=== PATIENT | male | born 1960 | race Caucasian/White ===

== ENCOUNTER 2024-06-14 13:35 | Outpatient (AMB) | payer OTHER, SELFPAY ==
--- NOTE | 2024-06-14 13:37 | A.OFFVIS_ITS ---
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 ILR Intake Note: New patient hx embolic stroke ? ILR feeling good Treasury Manager Required: No Allergies doxycycline Allergy (Mild, Verified 06/14/24 13:48) Rash Medication List - Last Reconciled 06/14/24 by Samuel Almanza MD aspirin (Adult Aspirin Regimen) 81 mg PO DAILY atorvastatin 20 mg PO DAILY clopidogrel 75 mg PO DAILY lisinopril 2.5 mg PO DAILY HPI Comments Details: Thank you for referring Bebo in cardiology consultation today for workup for CVA. Seen by Dr. 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 Patient was prior history of DVT/PE and was treated with blood thinners for very short period of time as per him. Does not recall having thrombophilic workup. This was few years ago. Since then he has had no events on aspirin therapy. He then had in summer this past year sudden-onset neurologic symptoms with memory loss and word-finding difficulty and subsequently was diagnose with a CVA. Had workup done with a 3 day Holter monitor as well as an echocardiogram. He did not undergo JOSE and does not recall undergoing a thrombophilic workup. He was referred here for further evaluation management. He is currently on dual antiplatelet therapy along with statin low-dose lisinopril therapy. Patient has no symptoms of prolonged palpitation irregular heartbeat. He said his speech difficulties have improved. He was no focal motor or sensory deficits. [facility] Medical History Pulmonary embolism CVA (cerebral vascular accident) Family History Father Alzheimer dementia Cancer Mother Rheumatic heart disease Social History Patient Tobacco Use Status: Never used Tobacco Review of Systems Const Denies chills, Denies daytime sleepiness, Denies fatigue, Denies fever(s), Denies frequent falls, Denies poor appetite, Denies snoring, Denies stops breathing during sleep, Denies weakness, Denies weight gain and Denies weight loss Eyes Denies loss of vision ENT Denies dizziness and Denies hearing loss Card Denies chest pain, Denies claudication, Denies leg edema, Denies lightheadedness, Denies palpitations, Denies dyspnea, Denies dyspnea on exertion and Denies orthopnea Resp Denies cough, Denies excessive phlegm production, Denies dyspnea, Denies dyspnea on exertion, Denies snoring and Denies wheezing GI Denies abdominal pain, Denies hematochezia, Denies change in bowel habits, Denies nausea and Denies vomiting Denies dysuria and Denies urinary frequency Musc Denies arthralgias, Denies muscle weakness, Denies numbness and Denies other (frequent falls) Skin/Breast Denies nail changes and Denies rash Neuro Denies Abnormal speech present, Denies dizziness, Denies frequent falls, Denies loss of vision, Denies memory loss, Denies numbness and Denies weakness Psych Denies depression and Denies memory loss Endo Denies fatigue and Denies palpitations Uriel/Lymph Reports easy bruising and Reports other (anemia) Aller/Immun Denies wheezing Physical Exam Vital Signs: Last Vital Signs Pulse 99 06/14/24 13:38 BP 120/74 06/14/24 13:38 BMI result Body Mass Index 30.4 Const General: cooperative, comfortable, no acute distress, alert, awake and well ivanna omed Nutritional Appearance: overweight Orientation/consciousness: patient oriented x3 Limitations: no limitations HEENT Head: Yes normocephalic and Yes atraumatic Neck Neck: Yes trachea midline and Yes supple Resp Effort & Inspection: normal respiratory effort Auscultation: clear to auscultation bilaterally Cardio Jugular venous distension: no JVD Palpation: normal PMI Rate: regular rate Rhythm: regular rhythm Heart sounds: S1 normal heart sound present, S2 normal heart sound present, no click, no gallops, no murmurs and no rubs GI Auscultation: normal bowel sounds Skin General skin exam: no rashes or lesions noted Neuro General: patient oriented x3 and no focal motor deficits Speech: No Abnormal speech present Extrem General: Yes no clubbing, cyanosis or edema Psych Appearance: grossly normal Office Procedures EKG Details: EKG shows normal sinus rhythm with isolated Q-waves in lead 3 and AVF which could represent pseudo infarct pattern from body habitus. [id number], Complete Assessment & Plan Assessment & Plan (1) CVA (cerebral vascular accident): Code(s): I63.9 - Cerebral infarction, unspecified Category: Medical Plan: CVA which appears to be embolic in nature as per Neurology. Atrial fibrillation suddenly possible. Will place implantable loop recorder to further assess for any presence of atrial fibrillation. This was discussed with him. Discussed the risks, benefits, alternatives to the procedure. Also will perform a JOSE to evaluate for PFO and other cardiac etiology for stroke. Discussed with him about risks, benefits, alternatives of the procedures. Understands agrees. Given his prior history of venous thromboembolic disease as well as now new embolic looking CVA question arterial thrombosis. Thrombophilic workup should be pursued. Will refer him to Hematology for the same. For now continue in intense vascular risk factor modification in absence of obvious source of stroke target goal LDL less than 70 mg/dL. Will follow with him. Orders: Orders CA echo transesophageal w con Today I63.9 - Cerebral infarction, unspecified Referrals Hematology & Oncology Referral I63.9 - Cerebral infarction, unspecified Coding Level of Care Code New Pt Level 4 (37320) Complex EM visit Add On G2211 Diagnoses CVA (cerebral vascular accident) I63.9 CPT Codes EKG - CPT: 82349-[id number], Complete ([id number])
[2024-06-14 13:38] VITALS: BP 120/74; PULSE 99; BMI 30.4
--- OUTSIDE RECORDS SUMMARY | 2024-06-14 13:39 | XMS_ITS | Continuity of Care Document ---
Author Organization [facility] Address [address] [place] [address]- Care Team Providers Care Cross Tie Maker Name Role Phone Not on Staff, PCP Primary Care Physician Unavail able Encounter [facility] Date(s): 04/28/24 - 05/28/24 [facility] [address] [place] [address]- Encounter Type: Triage Patient Care team information Care Team Personnel Name: Not on Staff, PCP Position: [facility] Physician (General Medicine) Member Role: PCP Insurance Providers Guarantor name: NA Health Plan Information #: 1 Payer: SELF PAY INSURANCE Member Number: NA Policy Number: NA Group Number: NA
== END 2024-06-14 14:27 | disposition home or self-care (01) ==
PROVIDERS: Visit Provider Internal Medicine Cardiovascular Disease
DX: I63.9 Cerebral infarction, unspecified (principal)
CPT/HCPCS: 93010; 99204; G2211

== ENCOUNTER → 2024-06-14 13:35 | Outpatient (BNVA) | payer OTHER, SELFPAY | PROVIDERS: Visit Provider Internal Medicine Cardiovascular Disease | DX: Z86.73 Personal history of transient ischemic attack (TIA), and cerebral infarction without residual deficits (principal); Z86.711 Personal history of pulmonary embolism; Z86.718 Personal history of other venous thrombosis and embolism; Z79.899 Other long term (current) drug therapy | CPT/HCPCS: 93005 ==

== ENCOUNTER 2024-06-21 12:41 | Outpatient (REF) | payer OTHER, SELFPAY ==
[2024-06-21 13:12] VITALS: BP 148/81; PULSE 66; RESP 18; TEMP 36.6; O2SAT 99; BMI 29.8
--- OUTSIDE RECORDS SUMMARY | 2024-06-21 15:01 | XMS_ITS | Continuity of Care Document ---
Author Organization [facility] Address [address] [place] [address]- Care Team Providers Care Garment Sewer Hand Name Role Phone Nabila Cabello MD Primary Care Physician Encounter [facility] [id number] Date(s): 06/09/24 - 06/16/24 [facility] [address] [place] [address]- Encounter Diagnosis Ischemic cerebrovascular accident (CVA)(Discharge Diagnosis) - 06/09/24 Tinnitus of both ears(Discharge Diagnosis) - 06/09/24 Memory loss or impairment(Discharge Diagnosis) - 06/09/24 Essential tremor(Discharge Diagnosis) - 06/09/24 Chronic insomnia(Discharge Diagnosis) - 06/09/24 DVT (deep venous thrombosis)(Discharge Diagnosis) - 06/09/24 Dyslipidemia(Discharge Diagnosis) - 06/09/24 PE (pulmonary thromboembolism)(Discharge Diagnosis) - 06/09/24 Attending Physician: Nabila Cabello MD Encounter Type: Office Visit Allergies, Adverse Reactions, Alerts Substance Criticality Severity Reaction Reaction Severity Status doxycycline Skin rash Active Medications aspirin 81 mg oral delayed release tablet 81 mg, 1, tablet, By Mouth, Daily, # 90 tablet, Refills 6, Tot. Refills 6, Maintenance, 06/09/24 11:14:00 AM EST, Route to Pharmacy Electronically, [id number], Partial fill upon patient request if the prescription is for a schedule II opioid drug., 170.5, cm, 06/09/24 10:31:00 EST, Height,89.4, kg, 06/09/24 10:27:00 EST, Dry Weight Start Date: 06/09/24 Status: Ordered Quantity: 90.0 Unit: tablet Repeat number: 7 atorvastatin 20 mg oral tablet 1 tablet = 20 mg, By Mouth, Daily, # 90 tablet, 6 Refills, Maintenance, 06/09/24 11:13:00 AM EST, Tablet, [id number], Partial fill upon patient request if the prescription is for a schedule II opioid drug., 170.5, cm, 06/09/24 10:31:00 EST, Height, 89.4, kg, 06/09/24 10:27:00 EST, Dry Weight Start Date: 06/09/24 Status: Ordered Quantity: 90.0 Unit: tablet Repeat number: 7 lisinopril 2.5 mg oral tablet 2.5 mg, 1, tablet, By Mouth, Daily, # 90 tablet, Refills 6, Tot. Refills 6, Maintenance, 06/09/24 11:14:00 AM EST, Route to Pharmacy Electronically, [id number], Partial fill upon patient request if the prescription is for a schedule II opioid drug., 170.5, cm, 06/09/24 10:31:00 EST, Height, 89.4, kg, 06/09/24 10:27:00 EST, Dry Weight Start Date: 06/09/24 Status: Ordered Quantity: 90.0 Unit: tablet Repeat number: 7 Plavix 75 mg oral tablet 75 mg, 1, tablet, By Mouth, Daily, # 90 tablet, Refills 6, Tot. Refills 6, Maintenance, 06/09/24 11:14:00 AM EST, Route to Pharmacy Electronically, [id number], Partial fill upon patient request if the prescription is for a schedule II opioid drug., 170.5, cm, 06/09/24 10:31:00 EST, Height,89.4, kg, 06/09/24 10:27:00 EST, Dry Weight Start Date: 06/09/24 Status: Ordered Quantity: 90.0 Unit: tablet Repeat number: 7 Problem List Condition Confirmation Course Effective Dates Status H ealth Status Informant Tinnitus of both ears Confirmed Active DVT (deep venous thrombosis) Confirmed Active Dyslipidemia Confirmed Active Essential tremor Confirmed Active Ischemic cerebrovascular accident (CVA) Confirmed Active Obese class I Confirmed Active PE (pulmonary thromboembolism) Confirmed Active Diagnosis Diagnosis Type Effective Dates Health Status Clinical Service Informant Ischemic cerebrovascular accident (CVA) Discharge Diagnosis 06/09/24 DVT (deep venous thrombosis) Discharge Diagnosis 06/09/24 PE (pulmonary thromboembolism) 1 Discharge Diagnosis 06/09/24 Non-Specified Dyslipidemia Discharge Diagnosis 06/09/24 Tinnitus of both ears Discharge Diagnosis 06/09/24 Memory loss or impairment Discharge Diagnosis 06/09/24 Essential tremor Discharge Diagnosis 06/09/24 Chronic insomnia Discharge Diagnosis 06/09/24 04/09/2025 11:33 GABY - Nabila Cabello MD PE and DVT 2018, no recurrence not on anticoag Vital Signs Most recent to oldest [Reference Range]: 1 2 3 Height 170 cm (06/12/24 10:12 AM) 170.5 cm (06/09/24 10:31 AM) 170.5 cm (06/09/24 10:27 AM) Weight 89 kg (06/12/24 10:12 AM) 89.4 kg (06/09/24 10:27 AM) Oxygen Saturation [94-100 %] 97 % (06/09/24 10:27 AM) Pulse Rate [55-90 bpm] 75 bpm (06/09/24 10:27 AM) Body Mass Index [18.5-24.99 kg/m2] 30.75 kg/m2 *>HHI* (06/09/24 10:27 AM) Blood Pressure [90-138/55-84 mm Hg] 129/84mm Hg (06/09/24 10:31 AM) 165/95mm Hg *H* (06/09/24 10:27 AM) Mode of Delivery (Oxygen) Room air (06/09/24 10:27 AM) Blood pressure sites Arm, right (06/09/24 10:31 AM) Arm, right (06/09/24 10:27 AM) Dry Weight 89.4 kg (06/09/24 10:27 AM) Weight Obtained Via Standing scale (06/09/24 10:27 AM) Dry Weight Obtained Via Standing scale (06/09/24 10:27 AM) Social History Social History Type Response Smoking Status Never (less than 100 in lifetime) entered on: 06/09/24 Sex Sex Representation Male (finding) Patient Care team information Care Team Personnel Name: Nabila Cabello MD Position: S Physician - Primary Care Member Role: PCP Address: [address] [place] [address] [facility] [address] Telecom: Care Team Related Persons Name: CADEN DURAN Insurance Providers Guarantor name: JENNIFER Health Plan Information #: 1 Payer: [employer] NON HMO PLANS Member Number: [id number] Policy Number: JENNIFER Group Number: [id number] Health Plan Information #: 2 Payer: SELF PAY INSURANCE Member Number: NA Policy Number: JENNIFER Group Number: NA
--- NOTE | 2024-06-22 08:50 | PM.OP ---
Brief Operative Note Date of Service: 06/21/24 Pre-op diagnosis: CVA Post-op diagnosis: same Procedure: Placement of implantable loop recorder. Implants: After obtaining full informed consent patient was brought to the minor surgery suite. Patient was laid supine on the operating table. Patient is precordial area was then prepped and draped in a sterile fashion. Patient was then given 2% lidocaine with epinephrine intradermally and subcutaneously at the surgical site. A small incision was then made. A [employer] implantable loop recorder was then placed using modified Seldinger technique in his subcutaneous pace. Measured R-wave add 0.15-0.19 mV. The wound was then closed with Steri-Strips. Pressure dressing was then applied. Minimal blood loss up to 5 mL Surgeon: Samuel Almanza MD Anesthesia: local Was an Light Armored Reconnaissance Officer used for this Procedure?: No Estimated blood loss (mL): 5 Condition: stable Disposition: same day
== END 2024-06-21 12:42 | disposition home or self-care (01) ==
LOC: HO.MS 12:41
PROVIDERS: PCP Internal Medicine; Visit Provider Internal Medicine Cardiovascular Disease
PROC: (CPT 33285; principal; 2024-06-21 13:30)
DX: I63.9 Cerebral infarction, unspecified (principal)
CPT/HCPCS: 33285; C1764; J2004

== ENCOUNTER → 2024-06-21 12:41 | Outpatient (BNV) | payer OTHER, SELFPAY | PROVIDERS: PCP Internal Medicine; Visit Provider Internal Medicine Cardiovascular Disease | DX: I63.9 Cerebral infarction, unspecified (principal) | CPT/HCPCS: 33285 ==

== ENCOUNTER → 2024-06-28 08:31 | Outpatient (BNV) | payer OTHER, SELFPAY | PROVIDERS: Visit Provider Internal Medicine Medical Oncology | DX: I69.328 Other speech and language deficits following cerebral infarction (principal); Z86.718 Personal history of other venous thrombosis and embolism; Z79.01 Long term (current) use of anticoagulants | CPT/HCPCS: 99204 ==

== ENCOUNTER → 2024-07-03 08:14 | Outpatient (BNVA) | payer OTHER, SELFPAY | PROVIDERS: PCP Internal Medicine; Visit Provider Internal Medicine Cardiovascular Disease ==

== ENCOUNTER 2024-07-05 12:44 | Day surgery (SDC) | payer OTHER, SELFPAY ==
--- NOTE | 2024-07-03 14:10 | HO.ANESPROP2 ---
Documented by User: Luiza Taylor NP 07/03/24 14:12 HPI - Anesthesia Eval Consult details Narrative: 64yo M for Transesophageal Echocardiogram with bubble study CVA: Plavix/asa PMFSH Active Problems Active Problems: All Active Problems CVA (cerebral vascular accident) (Acute) CVA (cerebral vascular accident) (Acute) Past Medical History Medical History History of cardiac monitoring DVT (deep venous thrombosis) Pulmonary embolism CVA (cerebral vascular accident) Family History Family History Father Alzheimer dementia Cancer Prostate CA Mother Rheumatic heart disease Paternal Grandfather Prostate CA Social History Social History Household Members: Spouse Patient Tobacco Use Status: Never used Tobacco Use of substances other than those prescribed or required for medical reasons: No Are you DNR?: No Advance Directives: No Advance Directives Information Provided: Yes Recently lost weight without trying: No Nutrition Risks: No Nutritional Risk Poor oral hygiene: No service: No Current occupational status: employed Gender identity: Male Meds Allergies Allergy/AdvReac Type Severity Reaction Status Date / Time doxycycline Allergy Mild Rash Verified 06/14/24 13:48 Home Medications ?Medication ?Instructions ?Recorded ?Confirmed ?Last Taken ?Type aspirin 81 mg tablet,delayed 81 mg PO DAILY 06/14/24 07/05/24 07/05/24 History release (Adult Aspirin Regimen) atorvastatin 20 mg tablet 20 mg PO DAILY 06/14/24 07/05/24 07/05/24 History clopidogrel 75 mg tablet 75 mg PO DAILY 06/14/24 07/05/24 07/05/24 History lisinopril 2.5 mg tablet 2.5 mg PO DAILY 06/14/24 07/05/24 07/05/24 History Exam Pertinent Lab Results Pertinent Lab Results: Laboratory Tests 06/28/24 10:03 WBC 6.2 Hgb 15.3 Hct 43.6 Plt Count 250 Sodium 140 Potassium 4.4 Chloride 113 H Carbon Dioxide 25 BUN 15 Creatinine 0.95 Narrative Narrative: EKG 06/2024 Details: EKG shows normal sinus rhythm with isolated Q-waves in lead 3 and AVF which could represent pseudo infarct pattern from body habitus. Assessment and Plan Assessment Anesthesia Assessment: Chart Reviewed Documented by User: Rachell Sun MD 07/05/24 14:30 COUNT INCLUDES THE [facility] Active Problems Active Problems: All Active Problems CVA (cerebral vascular accident) (Acute) CVA (cerebral vascular accident) (Acute) H/o DVT and PE years ago. Was on Plavix for 6 months and then baby ASA Past Medical History Medical History History of cardiac monitoring DVT (deep venous thrombosis) Pulmonary embolism CVA (cerebral vascular accident) Family History Family History Father Alzheimer dementia Cancer Prostate CA Mother Rheumatic heart disease Paternal Grandfather Prostate CA Family history of problems with anesthesia: No Surgical History History of Problems with Anesthesia: No Social History Social History Household Members: Spouse Patient Tobacco Use Status: Never used Tobacco Use of substances other than those prescribed or required for medical reasons: No Are you DNR?: No Advance Directives: No Advance Directives Information Provided: Yes Recently lost weight without trying: No Nutrition Risks: No Nutritional Risk Poor oral hygiene: No service: No Current occupational status: employed Gender identity: Male Meds Allergies Allergy/AdvReac Type Severity Reaction Status Date / Time doxycycline Allergy Mild Rash Verified 06/14/24 13:48 Home Medications ?Medication ?Instructions ?Recorded ?Confirmed ?Last Taken ?Type aspirin 81 mg tablet,delayed 81 mg PO DAILY 06/14/24 07/05/24 07/05/24 History release (Adult Aspirin Regimen) atorvastatin 20 mg tablet 20 mg PO DAILY 06/14/24 07/05/24 07/05/24 History clopidogrel 75 mg tablet 75 mg PO DAILY 06/14/24 07/05/24 07/05/24 History lisinopril 2.5 mg tablet 2.5 mg PO DAILY 0107/05/24 07/05/24 History Exam Height,Weight and Vital Signs: Height 5 ft 7 in Weight 86.296 kg Vital Signs Temp Pulse Resp BP Pulse Ox O2 Del Method 07/05/24 14:11 98.4 F 66 16 136/85 98 Room Air Airway Mallampati Class: III TM Dist: >3cm (Slight recession of lower jaw) Neck ROM: Full Partial: Upper Loose/Missing/Broken Teeth: Yes (Missing wisdom teeth) Heart: RRR Lungs: CTAB Assessment and Plan Assessment Anesthesia Assessment: Anesthesia Plan Discussed and Chart Reviewed Final Anesthetic Review Family History of Problems with Anesthesia: No History of Problems with Anesthesia: No NPO: Yes ASA Class: III Final Preanesthetic Review: No Changes in Pt Med Stat, Meds/Allgs Chart Reviewed, Consent Obtained/Reviewed and Anes Risks/Benef Reviewed Patient Risk: Intermediate Procedure Risk: Low Assessment/Block/Sedation in SS: Assess/Block/Sedation-SS Anesthetic Plan Anesthetic Plan: TIVA Disposition: Standard PACU
[2024-07-05 13:23] VITALS: BMI 29.8
[2024-07-05] MEDS: Lactated Ringers 1,000 ML 100 ML IVCONT (13:52)
--- NOTE | 2024-07-05 14:05 | MHC.SHP ---
Pre-Procedural Eval Section A - 24 Hr Update-Section A only Date of Service: 07/05/24 The patient is an INPATIENT: No Changes since office visit: Yes Patient answered all questions; No Cold of Flu in the past 2 weeks, No New Medical Problems and No Changes in Medication The patient has been examined within 24 hours of the surgical procedure. The History & Physical has been completed within 30 days and I have reviewed it.: Yes Section B - Complete if H&P > 30 days Chief Complaint: Cerebral infarction, unspecified Allergies: Allergies Allergy/AdvReac Type Severity Reaction Status Date / Time doxycycline Allergy Mild Rash Verified 06/14/24 13:48 Plan I have reviewed the history and physical and performed a pertinent physical examination on my patient. No changes have occurred unless specified. Time Spent With Patient Time: Total time managing care of this patient today ____ minutes.
[2024-07-05 14:11] VITALS: BP 136/85; PULSE 66; RESP 16; TEMP 36.9; O2SAT 98
--- OUTSIDE RECORDS SUMMARY | 2024-07-05 14:52 | XMS_ITS | Clinical Summary ---
Author Organization [facility] [address] [facility] Building Address [address] [place], [place] Phone Care Team Providers Care Commercial Litigation Attorney Name Role Phone Lambert Turner MD Primary Care Provider +1 [phone] Allergies Active Allergy Reactions Criticality Noted Date Comments Doxycycline 11/09/2017 Other Reaction(s): Rash/Dermatitis, unknown Medications Medication Sig Dispensed Refills Start Date End Date Status aspirin 81 mg EC tablet Take 1 tablet (81 mg total) by mouth 1 (one) time each day. Active atorvastatin (LIPITOR) 20 mg tablet Take 1 tablet (20 mg total) by mouth 1 (one) time each day. 10/21/2023 Active lisinopriL (PRINIVIL,ZESTRIL) 2.5 mg tablet Take 1 tablet (2.5 mg total) by mouth 1 (one) time each day. Active clopidogreL (PLAVIX) 75 mg tablet Take 1 tablet (75 mg total) by mouth 1 (one) time each day. 90 tablet 1 04/24/2024 Active Active Problems Problem Noted Date Diagnosed Date Elevated PSA 03/09/2024 Expressive aphasia 03/09/2024 History of CVA with residual deficit 03/09/2024 Hypertension 03/09/2024 Bilateral tinnitus 10/21/2023 Hyperlipidemia 07/24/2021 Adenomatous polyp of sigmoid colon 08/25/2018 Obesity (BMI 30.0-34.9) 05/04/2018 Encounters Date Type Department Care Team Description 05/16/2024 Telephone Internal Medicine - [address] [phone] Lambert Turner MD Forms/questionnaire s 04/25/2024 9:45 AM EST Office Visit Orthopedic Surgery - [place] [address] [facility] [address] [place] [address] Thien Starks, DPM 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); Posterior tibial tendon dysfunction (PTTD) of left lower extremity 04/24/2024 8:30 AM EST Office Visit Internal Medicine [address] [phone] Lambert Turner MD Routine general medical examination at a health care facility (Primary Dx); History of CVA with residual deficit; Elevated PSA; Altered taste; Hypertension, unspecified type 04/06/2024 Telephone Internal Medicine - [address] [phone] Lea Milton [place] Forms/questionnaire s (Conversion ([employer] to Support Disability Benefits)) 04/06/2024 Telephone Internal Medicine [address] [phone] Lea Milton [place] Forms/questionnaire s (Conversion) from Last 3 Months Immunizations Name Administration Dates Next Due Influenza, Unspecified 01/29/2024,03/02/2022 Moderna SARS-CoV-2 COVID-19, mRNA, LNP-S, preservative free 05/06/2022,02/10/2021 Tdap Tetanus diptheria acell ular pertussis (Boostrix; Adacel) 7yo and older 11/09/2017 Zoster recombinant (Shingrix) 19yo and older ,11/30/2021 Surgical History Surgery Date Site/Laterality Comments OTHER SURGICAL HISTORY PROCEDURE: ---- OTHER ----; COMMENT: teeth removed COLONOSCOPY 02/02/2018 PROCEDURE: HISTORICAL COLONOSCOPY; COMMENT: adenomas Medical History Medical History Date Comments Stroke ([facility]/HCC) DX:Stroke (HCC) DVT (deep venous thrombosis) ([facility]/HCC) DX:DVT (deep venous thrombosis) (HCC) DVT (deep venous thrombosis) (CMS/HCC) 11/09/2017 DX:DVT (deep venous thrombosis) (HCC) Pulmonary embolism (CMS/HCC) 11/09/2017 DX: Pulmonary embolism (HCC) Obesity (BMI 30.0-34.9) 05/04/2018 DX:Obesi ty (BMI 30.0-34.9) Ischemic stroke of frontal l obe (CMS/HCC) 01/14/2024 DX:Ischemic stroke of fronta l lobe (HCC) Expressive aphasia 01/14/2024 DX:Expressive aphasia Elevated PSA 01/14/2024 DX:Elevated PSA Hypertension 02/28/2024 DX:Hypertension Family History Medical History Relation Name Comments Cancer Father PROSTATE Dementia Father Prostate cancer Father Other: rheumatic heart disease Mother Dementia Paternal Grandfather Prostate cancer Paternal Grandfather Relation Name Status Comments Father Mother Paternal Grandfather Social History Tobacco Use Types Packs/Day Years Used Date Smoking Tobacco: Never Smokeless Tobacco: Never Tobacco Cessation:Counseling Given: Not Answered Alcohol Use Standard Drinks/Week Comments Yes 0 (1 standard drink = 0.6 oz pur e alcohol) Housing Instability Answer Date Recorde d Are you worried that in the next 2 months you may not have stable housing? No 04/18/2024 Food Access & Nutrition Answer Date Rec orded Do you have access to a vari ety of food including fruits and vegetables? Yes 04/18/2024 Health Literacy Answer Date Recorded How often do you need to hav e someone help you when you read instructions, pamphlets, or other written material from your doctor or pharmacy? Never 04/18/2024 Caregiver: How often do you need to have someone help you when you read instructions, pamphlets, or other written material from your doctor or pharmacy? Not on file 04/18/2024 Financial Risk Answer Date Recorded How hard is it for you to pa y for the very basics like food, housing, medical care, and air conditioning / heating? Not very hard 04/18/2024 Transportation Answer Date Recorded Has the lack of transportati on kept you from meetings, work, or from getting things needed for daily living? No Has the lack of transportati on kept you from medical appointments or from getting medications? No 04/18/2024 Social Isolation Answer Date Recorded How often do you feel lonely or isolated from th ose around you? Never 04/18/2024 Food Risk Answer Date Recorded Within the past 12 months we worried whether our food would run out before we got money to buy more. Never true 04/18/2024 Within the past 12 months th e food we bought just didn't last and we didn't have money to get more. Never true 04/18/2024 Dependent Care Answer Date Recorded Do you need help finding or paying for care for your loved ones. For example, child care sitter or elderly care for an older adult? No 04/18/2024 Education Answer Date Recorded Do you think completing more education or training, like finishing a GED, going to college, or learning a trade, would be helpful for you? No 04/18/2024 Employment and Income Answer Date Recor ded During the last four weeks, have you been actively looking for work? No 04/18/2024 Living Situation Answer Date Recorded What is your living situation? 1 06/18/2023 Sex and Gender Information Value Date Recorded Sex Assigned at Not on file Gender Identity Not on file Sexual Orientation Not on file Job Start Date Occupation Industry Not on file Not on file Not on file Obstetrics History Last Filed Vital Signs Vital Sign Reading Time Taken Comments Blood Pressure 120/76 04/24/2024 9:00 AM EST Pulse 72 04/24/2024 8:17 AM EST Temperature - - Respiratory Rate - - Oxygen Saturation - - Inhaled Oxygen Concentration - - Weight 90.3 kg (199 lb) 04/25/2024 9:35 AM EST Height 170.2 cm (5' 7.01 ) 04/25/2024 9:35 AM ES T Body Mass Index 31.16 04/25/2024 9:35 AM EST Plan of Treatment Upcoming Encounters Date Type Department Care Team (Late st Contact Info) Description 10/23/2024 9:00 AM EDT Office Visit Orthopedic Surgery - [place] [address] [phone] Thien Starks DPM [address] [phone] Health Maintenance Due Date Last Done Comments RSV Immunization Patients 60+ Years Old (1 - Risk 60-74 years 1-dose series) 2022 HIV Screening 05/17/2022 COVID-19 Vaccine ( season) 2024 05/06/2022, 04/07/2022, 06/14/2021, Additional history exists Hypertension/CHF/CAD Annual BMP Blood Test 03/06/2025 03/06/2024, 12/20/2023, 12/20/2023 Depression Screening 04/18/2025 04/18/2024 Social Influencers of Health Screening 04/18/2025 04/18/2024 DTaP,Tdap,and Td Vaccines (2 - Td or Tdap) 11/10/2027 11/09/2017 Cholesterol Screening (Lipid Panel) 12/19/2028 12/20/2023, 12/20/2023, 08/23/2017 Colorectal Cancer Screening: Colonoscopy 08/16/2033 08/17/2023 Hepatitis C Screening Completed 11/09/2017 Zoster Vaccines Completed 03/03/2022, 11/30/2021 Influenza Vaccine Completed 01/29/2024, , 03/02/2022, Additional history exists HIB Vaccines Aged Out No longer eligi ble based on patient's age to complete this topic HPV Vaccines Aged Out No longer eligi ble based on patient's age to complete this topic Hepatitis A Vaccines Aged Out No long er eligible based on patient's age to complete this topic Hepatitis B Vaccines Aged Out No long er eligible based on patient's age to complete this topic IPV Vaccines Aged Out No longer eligi ble based on patient's age to complete this topic MMR Vaccines Aged Out No longer eligi ble based on patient's age to complete this topic Meningococcal ACWY Vaccine Aged Out N o longer eligible based on patient's age to complete this topic Pneumococcal Vaccine: Pediatrics (0 to 5 Years) and At-Risk Patients (6 to 64 Years) Aged Out No longer eligible based on patient's age to complete this topic RSV Immunization Patients Under 20 months Aged Out No longer eligible based on patient's age to complete this topic Varicella Vaccines Aged Out No longer eligible based on patient's age to complete this topic Procedures Procedure Name Priority Date/Time Associated Diagnosis Comments ANNUAL BMP BLOOD TEST Routine 12/20/2023 LIPID PANEL Routine 12/20/2023 COLONOSCOPY Routine 08/17/2023 HEPATITIS C SCREENING Routine 11/09/2017 from Last 3 Months or Most Recently Relevant to Health Maintenance Results * Annual BMP Blood Test (12/20/2023) Pathologist [facility] Annual BMP Blood Test Abstracted Historical Provider MD RIKI TAYLOR E * Lipid panel (12/20/2023) [facility] LDL/HDL Ratio 3 0 - 4 Triglycerides 127 0 - 150 mg/dL Cholesterol 158 0 - 200 mg/dL HDL 56 40 mg/dL LDL Cholesterol 77 0 - 100 mg/dL Blood Venous blood specimen / Unknown Historical Provider LAB BLOOD ORDERAB LES * Colonoscopy (08/17/2023) Pathologist [facility] Colonoscopy No Interpretation , Abstracted Anatomical Region Laterality Modality Other Historical Provider MD LYN MAINDAVID E * Hepatitis C Screening (11/09/2017) [facility] Hepatitis C Screening Abstracted Historical Provider MD RIKI Milligan from Last 3 Months or Most Recently Relevant to Health Maintenance Care Teams Commercial Litigation Attorney Relationship Specialty Start Date End Date Lambert Turner MD [address] [place] [id number] PCP - General Internal Medicine 10/25/17
--- OUTSIDE RECORDS SUMMARY | 2024-07-05 14:52 | XMS_ITS | Clinical Summary ---
Author Organization [facility] Address [address] [place] [address] Care Team Providers Care Diamond Sorter Name Role Phone Lambert Turner MD Primary Care Provider [phone] [phone] Allergies Active Allergy Reactions Criticality Noted Date Comments Doxycycline 02/23/2024 Medications Medication Sig Dispensed Refills Start Date End Date Status atorvastatin (LIPITOR) tablet 20 mg Take 1 tablet (20 mg total) by mouth daily. 0 Active aspirin EC 81 MG tablet Take 1 tablet (81 mg total) by mouth daily. 0 Active clopidogrel (PLAVIX) 75 MG tablet Take 1 tablet (75 mg total) by mouth daily. 0 Active lisinopril (PRINIVIL,ZESTRIL) tablet 2.5 mg Take 1 tablet (2.5 mg total) by mouth daily. 0 Active Family History Medical History Relation Name Comments Cancer Father PROSTATE Relation Name Status Comments Father Social History Tobacco Use Types Packs/Day Years Used Date Smoking Tobacco: Never Smokeless Tobacco: Never Tobacco Cessation:Counseling Given: Not Answered Alcohol Use Standard Drinks/Week Comments Not Currently 0 (1 standard drink = 0.6 oz pur e alcohol) Sex and Gender Information Value Date Recorded Sex Assigned at Not on file Gender Identity Not on file Sexual Orientation Not on file Job Start Date Occupation Industry Not on file Not on file Not on file Last Filed Vital Signs Vital Sign Reading Time Taken Comments Blood Pressure 123/78 02/23/2024 3:21 PM EDT Pulse 68 02/23/2024 3:21 PM EDT Temperature 36.8 ??C (98.2 ??F) 02/23/2024 3:21 PM ED T Respiratory Rate - - Oxygen Saturation 99% 02/23/2024 3:21 PM EDT Inhaled Oxygen Concentration - - Weight 91.1 kg (200 lb 12.8 oz) 02/23/2024 3:21 PM EDT Height - - Body Mass Index - - Plan of Treatment Health Maintenance Due Date Last Done Comments Hepatitis C Screening 1962 Depression Screening 1974 Preventative Health Evaluation 1980 Colon Cancer Screening (Colonoscopy) 2007 Shingrix-Zoster Vaccine (1 o f 2) 2012 COVID-19 Vaccine (3 - 2023-2 5 season) 2024 10/09/2020, 09/10/2020 Influenza Vaccine (#1) 2024 DTap / Tdap / Td (2 - Td or Tdap) 11/10/2027 11/09/2017 RSV Adult > 60+ Yrs or (1 - 1-dose 75+ series) 2037 Hepatitis B Vaccines Aged Out No long er eligible based on patient's age to complete this topic Pneumococcal Vaccine Aged Out No long er eligible based on patient's age to complete this topic RSV Ped < 20 months Aged Out No longe r eligible based on patient's age to complete this topic Care Teams Diamond Sorter Relationship Specialty Start Date End Date Lambert Turner MD [address] [place] [id number] PCP - General Internal Medicine 01/14/24
--- OUTSIDE RECORDS SUMMARY | 2024-07-05 14:52 | XMS_ITS | Clinical Summary ---
Author Organization [facility] Address [address] [place] [address] Care Team Providers Care Framing Mechanic Name Role Phone Unavailable Primary Care Provider Unavailabl e Source Comments PLEASE NOTE, if this patient is a minor, it may be UNLAWFUL to discuss sensitive information that is contained in these records (such as FAMILY PLANNING, MENTAL HEALTH or SUBSTANCE ABUSE) with the minor patient's parent or other person without the patient's specific authorization.[facility] Immunizations Name Administration Dates Next Due Moderna COVID-19 Vaccine, re d cap blue label, 12+ Primary Series 10/09/2020,09/10/2020 Social History Tobacco Use Types Packs/Day Years Used Date Smoking Tobacco: Never Assessed Social Connections Answer Date Recorded Social Connections and Isolation 0 09/10/2020 Financial Resource Strain Answer Date R ecorded Financial Resource Strain 0 2020 Stress Answer Date Recorded Stress 0 09/10/2020 Physical Activity Answer Date Recorded Physical Activity 0 09/10/2020 Food Insecurity Answer Date Recorded Food 0 09/10/2020 Transportation Needs Answer Date Record ed Transportation 0 09/10/2020 Housing Stability Answer Date Recorded Housing 0 09/10/2020 Safety and Environment Answer Date Flip rded Safety 0 09/10/2020 Utilities Answer Date Recorded Utilities 0 09/10/2020 Employment Answer Date Recorded Employment 0 09/10/2020 Sex and Gender Information Value Date Recorded Sex Assigned at Not on file Legal Sex Male 5:32 AM PDT Gender Identity Not on file Sexual Orientation Not on file Plan of Treatment Health Maintenance Due Date Last Done Comments Diabetes Screening 1960 Hepatitis C Screening 1962 Tobacco Screening 1962 HIV Screening 1977 Annual Preventive Care Visit 1980 Hypertension Screening (#1) 1980 CT Colonography 2007 Colonoscopy 2007 Colorectal Cancer Screening 2007 FIT/gFOBT 2007 Fecal DNA 2007 Flexible Sigmoidoscopy 2007 Imm-Zoster, Recombinant (1 of 2) 2012 Lipid Screening 08/23/2022 08/23/2017 [id number] ( season) 2024 021, 09/10/2020 Imm-Influenza (#1) 2024 02/08/2020 Alcohol and Drug Screen 06/07/2024 Depression Annual Screen 06/07/2024 Imm-DTaP/Tdap/Td (2 - Td or Tdap) 11/10/2027 018 Insurance [employer]
[2024-07-05 15:38] VITALS: BP 147/94; PULSE 79; RESP 18; TEMP 36.5; O2SAT 94
[2024-07-05 15:43] VITALS: BP 124/83; PULSE 78; RESP 18; O2SAT 94
[2024-07-05 15:48] VITALS: BP 121/77; PULSE 77; RESP 18; O2SAT 95
[2024-07-05 15:53] VITALS: BP 130/76; PULSE 83; RESP 19; O2SAT 96
[2024-07-05 16:08] VITALS: BP 117/79; PULSE 76; RESP 18; TEMP 36.4; O2SAT 96
== END 2024-07-05 16:16 | disposition home or self-care (01) ==
PROVIDERS: Visit Provider Internal Medicine Cardiovascular Disease
PROC: (CPT 93312; principal; 2024-07-05 14:30)
DX: I63.9 Cerebral infarction, unspecified (principal); R47.9 Unspecified speech disturbances; Z86.711 Personal history of pulmonary embolism; Z86.718 Personal history of other venous thrombosis and embolism; Z79.82 Long term (current) use of aspirin; Z79.02 Long term (current) use of antithrombotics/antiplatelets; Z79.899 Other long term (current) drug therapy; Z88.1 Allergy status to other antibiotic agents
CPT/HCPCS: 93312; J0330; J2003; J2250; J2704; J3010

== ENCOUNTER → 2024-07-05 14:05 | Outpatient (BNV) | payer OTHER, SELFPAY | PROVIDERS: Visit Provider Internal Medicine Cardiovascular Disease | DX: I42.2 Other hypertrophic cardiomyopathy (principal); I51.7 Cardiomegaly; I70.0 Atherosclerosis of aorta; I63.9 Cerebral infarction, unspecified | CPT/HCPCS: 76376; 93312; 93320 ==

== ENCOUNTER → 2024-07-23 23:59 | Outpatient (BNV) | payer OTHER, SELFPAY ==
--- NOTE | 2024-08-07 12:58 | MHC.OFFVIS ---
Intake Visit Reasons: Remote ILR check- [employer] Allergies doxycycline Allergy (Mild, Verified 06/14/24 13:48) Rash [facility] Medical History History of cardiac monitoring DVT (deep venous thrombosis) Pulmonary embolism CVA (cerebral vascular accident) Family History Father Alzheimer dementia Cancer Prostate CA Mother Rheumatic heart disease Paternal Grandfather Prostate CA Social History Household Members: Spouse Patient Tobacco Use Status: Never used Tobacco service: No Current occupational status: employed Gender identity: Male Office Procedures Cardiac Device Check Cardiac Device Check Details: Remote implantable loop recorder report generated 07/23/2024. I was requested to read this report today. No arrhythmias or pauses noted. 97813-Sxxdyd Cardiac Interrogation, subcut cardiac rhythm monitor Procedure code (CPT) selection complete Assessment & Plan Assessment & Plan (1) Implantable loop recorder present: Code(s): Z95.818 - Presence of other cardiac implants and grafts Category: Medical Plan: See above Coding Level of Care Code Procedure Only Diagnoses Implantable loop recorder present Z95.818 CPT Codes Cardiac Device Check - Cardiac Device 16: 60686-Irhqtj Cardiac Interrogation, subcut cardiac rhythm monitor ([id number])
== END ==
PROVIDERS: Visit Provider Internal Medicine Cardiovascular Disease
DX: Z45.09 Encounter for adjustment and management of other cardiac device (principal)
CPT/HCPCS: 93298

== ENCOUNTER 2024-07-31 14:14 | Outpatient (AMB) | payer OTHER, SELFPAY ==
[2024-07-31 14:35] VITALS: BP 124/70; PULSE 76; BMI 29.3
--- NOTE | 2024-07-31 14:35 | A.OFFVIS_ITS ---
Vital Signs 07/31/24 14:35 Height 5 ft 7 in Weight 187 lb 6.287 oz BMI 29.3 BP 124/70 Blood Pressure Location Lt brachial Position Sitting Pulse 76 Pulse Source Pulse Oximeter Intake Visit Reasons: 6 wk follow up/JOSE/ loop recorder check Allergies doxycycline Allergy (Mild, Verified 06/14/24 13:48) Rash Medication List - Last Reconciled 07/31/24 by Samuel Almanza MD aspirin (Adult Aspirin Regimen) 81 mg PO DAILY atorvastatin 20 mg PO DAILY clopidogrel 75 mg PO DAILY lisinopril 2.5 mg PO DAILY HPI Comments Details: Bebo comes for follow-up. Overall he has had no new neurologic events. Taking dual antiplatelet therapy. Also taking statin therapy. He is transesophageal echocardiogram was negative for intracardiac shunting or thrombi. He did have plaque in the transverse as well as descending thoracic aorta but they were not protruding or with any evidence of erosion. He underwent implantable loop recorder placement which she was no evidence of atrial fibrillation. [facility] Medical History History of cardiac monitoring DVT (deep venous thrombosis) Pulmonary embolism CVA (cerebral vascular accident) Family History Father Alzheimer dementia Cancer Prostate CA Mother Rheumatic heart disease Paternal Grandfather Prostate CA Social History Household Members: Spouse Patient Tobacco Use Status: Never used Tobacco service: No Current occupational status: employed Gender identity: Male Review of Systems Const Denies weakness ENT Denies dizziness Card Denies chest pain, Denies chest pain with activity, Denies syncope, Denies rapid heart rate, Denies pedal edema, Denies edema, Denies leg edema, Denies lightheadedness, Denies palpitations, Denies dyspnea, Denies dyspnea on exertion and Denies orthopnea Resp Denies cough, Denies dyspnea and Denies dyspnea on exertion GI Denies hematochezia and Denies change in stool character Musc Denies abnormal gait, Denies muscle cramps, Denies muscle weakness, Denies numbness, Denies radiating pain into limb and Denies tingling Neuro Denies abnormal gait, Denies dizziness, Denies syncope, Denies numbness, Denies tingling and Denies weakness Endo Denies palpitations Physical Exam Vital Signs: Last Vital Signs Pulse 76 07/31/24 14:35 BP 124/70 07/31/24 14:35 BMI result Body Mass Index 29.3 Const General: cooperative, comfortable, no acute distress, alert and awake Nutritional Appearance: overweight Orientation/consciousness: patient oriented x3 Neck Neck: Yes trachea midline, Yes supple and Yes no JVD Chest Chest palpation & inspection: other (Implantable loop recorder site is well healed) Cardio Jugular venous distension: no JVD Palpation: normal PMI Rate: regular rate Rhythm: regular rhythm Heart sounds: S1 normal heart sound present, S2 normal heart sound present, no click, no gallops and no murmurs Skin General skin exam: no rashes or lesions noted Neuro General: patient oriented x3 and no focal motor deficits Extrem General: Yes no clubbing, cyanosis or edema Office Procedures Cardiac Device Check Cardiac Device Check Details: Implantable loop recorder in place. No arrhythmias or pauses noted. Battery life is excellent 11887-Mmexlri Device Interrogation, subcut cardiac rhythm monitor Procedure code (CPT) selection complete Assessment & Plan Assessment & Plan (1) CVA (cerebral vascular accident): Comment: saw a speech therapist for his word December 2023 Code(s): I63.9 - Cerebral infarction, unspecified Category: Medical Plan: CVA without any obvious source except for atherosclerotic changes noted in the aorta. Continue dual antiplatelet therapy at least for year. Will continue pursue implantable loop recorder remotely on a monthly basis. Follow up in the clinic in a year's time. If he was no events on loop monitor in a year's time will consider explanting the loop recorder at that point time. Continue aggressive risk factor modification. Continue statin therapy with target goal LDL closer to 55 mg/dL. Follow up in the clinic in 1 year's time, sooner p.r.n.. Thank you for allowing me to partake in his care Coding Level of Care Code Est Pt Level 3 (59745) Complex EM visit Add On G2211 Diagnoses CVA (cerebral vascular accident) I63.9 CPT Codes Cardiac Device Check - Cardiac Device 11: 43900-Cbeohod Device Interrogation, subcut cardiac rhythm monitor ([id number])
--- OUTSIDE RECORDS SUMMARY | 2024-07-31 16:23 | XMS_ITS | Clinical Summary ---
Author Organization [facility] [address] [facility] Address [address] [facility] [place] Phone Care Team Providers Care Field Appraiser Name Role Phone Lambert Turner MD Primary Care Provider [phone] [phone] Allergies Active Allergy Reactions Criticality Noted Date Comments Doxycycline 11/09/2017 Other Reaction(s): Rash/Dermatitis, unknown Medications aspirin 81 mg EC tablet Take 1 tablet (81 mg total) by mouth 1 (one) time each day. Active atorvastatin (LIPITOR) 20 mg tablet Take 1 tablet (20 mg total) by mouth 1 (one) time each day. 10/21/2023 Active lisinopriL (PRINIVIL,ZESTRI L) 2.5 mg tablet Take 1 tablet (2.5 [...] Team Description 05/16/2024 Telephone Internal Medicine - [place] [address] [place] [address] Lambert Turner MD Forms/questionnaires from Last 3 Months Immunizations Name Administration [...] Medical History Medical History Date Comments Stroke ([facility]) DX:Stroke (HCC) DVT (deep venous thrombosis) ([facility]) DX:DVT (deep venous thrombosis) (HCC) DVT (deep venous thrombosis) ([facility]) 11/09/2017 DX:DVT (deep venous thrombosis) (HCC) Pulmonary embolism ([facility]) 11/09/2017 DX: Pulmonary embolism (HCC) Obesity (BMI 30.0-34.9) 05/04/2018 DX:Obesi ty (BMI 30.0-34.9) Ischemic stroke of frontal l obe ([facility]) 01/14/2024 DX:Ischemic stroke of fronta l lobe ([facility]) Expressive aphasia 01/14/2024 DX:Expressive aphasia Elevated PSA [...] your loved ones. For example, child care supervisor or elderly care for an older adult? [...] at Not on file Legal Sex Male 11:51 AM EST Gender Identity Not on file Sexual Orientation Not on file Obstetrics History Last Filed [...] AM EDT Office Visit Orthopedic Surgery - [place] [address] [phone] Thien Starks, DPM [address] [address] Health Maintenance Due Date Last Done Comments Pneumococcal Vaccine: 50+ Years (1 of 1 - PCV) 2012 RSV Immunization Patients 60+ Years Old (1 [...] patient's age to complete this topic Meningococcal B Vacine Aged Out No lo nger eligible based on patient's age to complete [...] * Annual BMP Blood Test (12/20/2023) Pathologist [facility] Annual BMP Blood Test Abstracted Historical Provider HEALTH MAINTENANCE Final Result * Lipid panel (12/20/2023) Pathologist [facility] LDL/HDL Ratio 3 0 - 4 Triglycerides 127 0 - 150 mg/dL Cholesterol 158 0 - 200 mg/dL HDL 56 >=40 mg/dL LDL Cholesterol 77 0 - 100 mg/dL Blood Venous blood specimen / Unknown us Historical Provider LAB BLOOD ORDERABLES Destiny l Result * Colonoscopy (08/17/2023) Colonoscopy No Interpretation , Abstracted Anatomical Region Laterality Modality Other us Historical Provider HEALTH MAINTENANCE Final Result * Hepatitis C Screening (11/09/2017) Hepatitis C Screening Abstracted us Historical Provider HEALTH MAINTENANCE Final Result from Last 3 Months or Most Recently Relevant to Health Maintenance Insurance [employer] Care Teams Field Appraiser Relationship Specialty Start Date End Date Lambert Turner MD [address] [place] [id number] PCP - General Internal Medicine 10/25/17
--- OUTSIDE RECORDS SUMMARY | 2024-07-31 16:23 | XMS_ITS | Clinical Summary ---
Author Organization [facility] Address [address] [place] [address] Care Team Providers Care U.[place]. Senator Name Role Phone Lambert Turner MD Primary Care Provider [phone] [phone] Allergies Active Allergy Reactions Criticality Noted Date [...] age to complete this topic Care Teams U.[place]. Senator Relationship Specialty Start Date End Date Lambert Turner MD [address] [place] [id number] PCP - General Internal Medicine 01/14/24
--- OUTSIDE RECORDS SUMMARY | 2024-07-31 16:23 | XMS_ITS | Clinical Summary ---
Author Organization [facility] Address [address] [place] [address] Care Team Providers Care Transport Aide Name Role Phone Unavailable Primary Care Provider [...] of 2) 2012 Lipid Screening 08/23/2022 08/23/2017 [id number] ( season) 2024 021, 09/10/2020 Imm-Influenza (#1) 2024 02/08/2020 Alcohol and Drug Screen 06/07/2024 Depression Annual Screen 06/07/2024 Imm-DTaP/Tdap/Td (2 - Td or Tdap) 11/10/2027 018 Insurance [employer]
--- OUTSIDE RECORDS SUMMARY | 2024-07-31 16:23 | XMS_ITS | Continuity of Care Document ---
Author Organization [facility] Address [address] [place] [address]- Care Team Providers Care Assurance Auditor Name Role Phone Irineo PRABHAKAR, Nabila Primary Care Phys[id number] Date(s): 06/15/24 - 07/15/24 [facility] [address] [place], [place] [address] Encounter Type: Triage Allergies, Adverse Reactions, Alerts Substance Criticality Severity Reaction Reaction Severity Status doxycycline Skin rash Active Medications aspirin 81 mg oral delayed release tablet 81 mg, 1, tablet, By Mouth, Daily, # 90 tablet, Refills 6, Tot. Refills 6, Maintenance, 06/09/24 11:14:00 AM EST, Route to Pharmacy Electronically, [facility], Partial fill upon patient [...] Refills, Maintenance, 06/09/24 11:13:00 AM EST, Tablet, [facility], Partial fill upon patient [...] 11:14:00 AM EST, Route to Pharmacy Electronically, [facility], Partial fill upon patient [...] 11:14:00 AM EST, Route to Pharmacy Electronically, [facility], Partial fill upon patient [...] Confirmed Active PE (pulmonary thromboembolism) Confirmed Active Social History Social History Type Response Smoking Status Never (less than 100 in lifetime) entered on: 06/09/24 Sex Sex Representation Male (finding) Patient Care team information Care Team Personnel Name: Nabila Cabello MD Position: [facility] Physician - Primary Care Member Role: PCP Address: [address] [place] [address] Adult & Pediatric Medicine [address] Telecom: Care Team Related Persons Name: CADEN DURAN Insurance Providers Guarantor name: JENNIFER Health Plan Information #: 1 Payer: [employer] NON HMO PLANS Member Number: NA Policy Number: NA Group Number: NA
--- OUTSIDE RECORDS SUMMARY | 2024-07-31 16:23 | XMS_ITS | Continuity of Care Document ---
Author Organization [facility] Address [address] [place] [address]- Care Team Providers Care Edge Beader Name Role Phone Irineo PRABHAKAR, Nabila Primary Care Physician [facility] [id number] Date(s): 06/09/24 - 07/09/24 [facility] [address] [place], [place] [address] Attending Physician: Zion Mujica Admitting Physician: Zion Mujica Referring Physician: AdmtrZion Encounter Type: Triage Allergies, Adverse Reactions, Alerts Substance Criticality Severity Reaction Reaction Severity Status doxycycline Skin rash Active Medications aspirin 81 mg oral delayed release tablet 81 mg, 1, tablet, By Mouth, Daily, # 90 tablet, Refills 6, Tot. Refills 6, Maintenance, 06/09/24 11:14:00 AM EST, Route to Pharmacy Electronically, [facility], Partial fill upon patient [...] Refills, Maintenance, 06/09/24 11:13:00 AM EST, Tablet, [facility], Partial fill upon patient [...] 11:14:00 AM EST, Route to Pharmacy Electronically, [facility], Partial fill upon patient [...] 11:14:00 AM EST, Route to Pharmacy Electronically, [facility], Partial fill upon patient [...] Team Personnel Name: Nabila Cabello MD Position: [facility] Physician - Primary Care Member Role: PCP Address: [address] [place] [address] Adult & Pediatric Medicine [address] Telecom: Care Team Related Persons Name: CADEN DURAN Insurance Providers Guarantor name: NA Health Plan Information #: 1 Payer: [employer] NON HMO PLANS Member Number: NA Policy Number: NA Group Number: NA
== END 2024-07-31 14:56 | disposition home or self-care (01) ==
PROVIDERS: Visit Provider Internal Medicine Cardiovascular Disease
DX: I63.9 Cerebral infarction, unspecified (principal)
CPT/HCPCS: 93291; 99213; G2211

== ENCOUNTER → 2024-07-31 14:14 | Outpatient (BNVA) | payer OTHER, SELFPAY | PROVIDERS: Visit Provider Internal Medicine Cardiovascular Disease ==

== ENCOUNTER → 2024-09-21 23:59 | Outpatient (BNV) | payer OTHER, SELFPAY ==
--- NOTE | 2024-09-27 13:38 | MHC.OFFVIS ---
Intake Visit Reasons: Remote ILR check- [employer] Allergies doxycycline Allergy (Mild, Verified 06/14/24 13:48) Rash [facility] Medical History History of cardiac monitoring DVT (deep venous thrombosis) Pulmonary embolism CVA (cerebral vascular accident) Family History Father Alzheimer dementia Cancer Prostate CA Mother Rheumatic heart disease Paternal Grandfather Prostate CA Social History Household Members: Spouse Patient Tobacco Use Status: Never used Tobacco service: No Current occupational status: employed Gender identity: Male Office Procedures Cardiac Device Check Cardiac Device Check Details: Remote implantable loop recorder report generated 09/21/2024. No pauses or arrhythmias noted 48335-Expnag Cardiac Interrogation, subcut cardiac rhythm monitor Procedure code (CPT) selection complete Assessment & Plan Assessment & Plan (1) Implantable loop recorder present: Code(s): Z95.818 - Presence of other cardiac implants and grafts Category: Medical Plan: See above Coding Level of Care Code Procedure Only Diagnoses Implantable loop recorder present Z95.818 CPT Codes Cardiac Device Check - Cardiac Device 16: 25618-Axvmts Cardiac Interrogation, subcut cardiac rhythm monitor ([id number])
== END ==
PROVIDERS: Visit Provider Internal Medicine Cardiovascular Disease
DX: Z45.09 Encounter for adjustment and management of other cardiac device (principal)
CPT/HCPCS: 93298

== ENCOUNTER → 2024-10-21 23:59 | Outpatient (BNV) | payer OTHER, SELFPAY ==
--- NOTE | 2024-10-24 10:48 | A.OFFVIS_ITS ---
Intake Visit Reasons: Remote ILR check- [employer] Allergies doxycycline Allergy (Mild, Verified 06/14/24 13:48) Rash [facility] Medical History History of cardiac monitoring DVT (deep venous thrombosis) Pulmonary embolism CVA (cerebral vascular accident) Family History Father Alzheimer dementia Cancer Prostate CA Mother Rheumatic heart disease Paternal Grandfather Prostate CA Social History Household Members: Spouse Patient Tobacco Use Status: Never used Tobacco service: No Current occupational status: employed Gender identity: Male Office Procedures Cardiac Device Check Cardiac Device Check Details: Remote implantable loop recorder report generated 10/21/2024. No arrhythmias or pauses noted 43590-Qxotsd Cardiac Interrogation, subcut cardiac rhythm monitor Procedure code (CPT) selection complete Assessment & Plan Assessment & Plan (1) Implantable loop recorder present: Code(s): Z95.818 - Presence of other cardiac implants and grafts Category: Medical Plan: See above Coding Level of Care Code Procedure Only Diagnoses Implantable loop recorder present Z95.818 CPT Codes Cardiac Device Check - Cardiac Device 16: 44586-Snmqat Cardiac Interrogation, subcut cardiac rhythm monitor ([id number])
== END ==
PROVIDERS: Visit Provider Internal Medicine Cardiovascular Disease
DX: Z45.09 Encounter for adjustment and management of other cardiac device (principal)
CPT/HCPCS: 93298

== ENCOUNTER → 2024-11-20 23:59 | Outpatient (BNV) | payer OTHER, SELFPAY ==
--- NOTE | 2024-11-23 12:15 | MHC.OFFVIS ---
Intake Visit Reasons: Remote ILR check- [employer] Allergies doxycycline Allergy (Mild, Verified 06/14/24 13:48) Rash [facility] Medical History History of cardiac monitoring DVT (deep venous thrombosis) Pulmonary embolism CVA (cerebral vascular accident) Family History Father Alzheimer dementia Cancer Prostate CA Mother Rheumatic heart disease Paternal Grandfather Prostate CA Social History Household Members: Spouse Patient Tobacco Use Status: Never used Tobacco service: No Current occupational status: employed Gender identity: Male Office Procedures Cardiac Device Check Cardiac Device Check Details: Remote implantable loop recorder report generated 11/20/2024. No arrhythmias or pauses noted 13526-Kjpppi Cardiac Interrogation, subcut cardiac rhythm monitor Procedure code (CPT) selection complete Assessment & Plan Assessment & Plan (1) Implantable loop recorder present: Code(s): Z95.818 - Presence of other cardiac implants and grafts Category: Medical Plan: See above Coding Level of Care Code Procedure Only Diagnoses Implantable loop recorder present Z95.818 CPT Codes Cardiac Device Check - Cardiac Device 16: 50884-Bhatik Cardiac Interrogation, subcut cardiac rhythm monitor ([id number])
== END ==
PROVIDERS: Visit Provider Internal Medicine Cardiovascular Disease
DX: Z45.09 Encounter for adjustment and management of other cardiac device (principal)
CPT/HCPCS: 93298

== ENCOUNTER → 2024-12-20 23:59 | Outpatient (BNV) | payer OTHER, SELFPAY ==
--- NOTE | 2024-12-26 10:51 | A.OFFVIS_ITS ---
Intake Visit Reasons: Remote ILR check- [employer] Allergies doxycycline Allergy (Mild, Verified 06/14/24 13:48) Rash [facility] Medical History History of cardiac monitoring DVT (deep venous thrombosis) Pulmonary embolism CVA (cerebral vascular accident) Family History Father Alzheimer dementia Cancer Prostate CA Mother Rheumatic heart disease Paternal Grandfather Prostate CA Social History Household Members: Spouse Patient Tobacco Use Status: Never used Tobacco service: No Current occupational status: employed Gender identity: Male Office Procedures Cardiac Device Check Cardiac Device Check Details: Remote implantable loop recorder report generated 12/20/2024. No arrhythmias or pauses noted 49181-Vpjnyj Cardiac Interrogation, subcut cardiac rhythm monitor Procedure code (CPT) selection complete Assessment & Plan Assessment & Plan (1) Implantable loop recorder present: Code(s): Z95.818 - Presence of other cardiac implants and grafts Category: Medical Plan: See above Coding Level of Care Code Procedure Only Diagnoses Implantable loop recorder present Z95.818 CPT Codes Cardiac Device Check - Cardiac Device 16: 03286-Nijpjk Cardiac Interrogation, subcut cardiac rhythm monitor ([id number])
== END ==
PROVIDERS: PCP Internal Medicine; Visit Provider Internal Medicine Cardiovascular Disease
DX: Z45.09 Encounter for adjustment and management of other cardiac device (principal)
CPT/HCPCS: 93298

== ENCOUNTER → 2025-02-18 23:59 | Outpatient (BNV) | payer OTHER, SELFPAY ==
--- NOTE | 2025-02-22 14:32 | MHC.OFFVIS ---
Intake Visit Reasons: Remove ILR Check ([employer]) Allergies doxycycline Allergy (Mild, Verified 06/14/24 13:48) Rash [facility] Medical History History of cardiac monitoring DVT (deep venous thrombosis) Pulmonary embolism CVA (cerebral vascular accident) Family History Father Alzheimer dementia Cancer Prostate CA Mother Rheumatic heart disease Paternal Grandfather Prostate CA Social History Household Members: Spouse Patient Tobacco Use Status: Never used Tobacco service: No Current occupational status: employed Gender identity: Male Office Procedures Cardiac Device Check Cardiac Device Check Details: Remote implantable loop recorder report generated 02/18/2025. No pauses or arrhythmias noted 36527-Zifaok Cardiac Interrogation, subcut cardiac rhythm monitor Procedure code (CPT) selection complete Assessment & Plan Assessment & Plan (1) Implantable loop recorder present: Code(s): Z95.818 - Presence of other cardiac implants and grafts Category: Medical Plan: See above Coding Level of Care Code Procedure Only Diagnoses Implantable loop recorder present Z95.818 CPT Codes Cardiac Device Check - Cardiac Device 16: 44815-Lmqwxp Cardiac Interrogation, subcut cardiac rhythm monitor ([id number])
== END ==
PROVIDERS: PCP Internal Medicine; Visit Provider Internal Medicine Cardiovascular Disease
DX: Z45.09 Encounter for adjustment and management of other cardiac device (principal)
CPT/HCPCS: 93298

== ENCOUNTER 2025-03-13 08:42 | Outpatient (AMB) | payer OTHER, SELFPAY ==
--- NOTE | 2025-03-13 09:08 | A.OFFVIS_ITS ---
Intake Visit Reasons: 6m f/u Allergies doxycycline Allergy (Mild, Verified 03/13/25 09:08) Rash Medication List - Last Reconciled 03/13/25 by Kimberly Lucero CNP apixaban (Eliquis) 5 mg PO BID atorvastatin 20 mg PO DAILY clopidogrel 75 mg PO DAILY lisinopril 2.5 mg PO DAILY HPI Comments Details: He was doing okay. Has Linq implant and states no afib or events noted so far, following with cardiology. No new stroke-like symptoms. No headaches or dizziness. Speech returned to normal. Tremors are stable. No functional impairment. No difficulty eating, drinking, or swallowing. On 01/01/2024, he noticed that he was having some trouble understanding and expressing himself. 2 days later, he presented to the [facility] emergency room, 48 hours after the onset of symptoms, and was found to have a subacute left frontal ischemic infarct in a CTA that showed occlusion of the left M-3 branch of the MCA. The remainder of the intracranial and neck muscles were normal. Trans-thoracic echocardiogram was normal with no evidence of shunt. He had a Normal 3 day property assessment monitor. Plavix was added and he was discharged to speech therapy. His symptoms have improved and his speech is about 99% better. He had no recurrence of symptoms. No previous history of stroke. [facility] Medical History History of cardiac monitoring DVT (deep venous thrombosis) Pulmonary embolism CVA (cerebral vascular accident) Family History Father Alzheimer dementia Cancer Prostate CA Mother Rheumatic heart disease Paternal Grandfather Prostate CA Social History Household Members: Spouse Patient Tobacco Use Status: Never used Tobacco service: No Current occupational status: employed Gender identity: Male Review of Systems Const Denies chills, Denies daytime sleepiness, Reports difficulty sleeping, Denies fatigue, Denies fever(s), Denies frequent falls, Denies headache(s), Denies increased appetite, Denies poor appetite, Denies snoring, Denies weakness, Denies weight gain and Denies weight loss Eyes Denies loss of vision ENT Denies vertigo, Denies dizziness, Denies headache(s) and Denies neck pain Card Denies chest pain at rest, Denies chest pain with activity, Denies syncope, Denies leg edema, Denies palpitations, Denies dyspnea and Denies dyspnea on exertion Resp Denies cough, Denies dyspnea, Denies dyspnea on exertion and Denies snoring GI Denies abdominal pain, Denies constipation, Denies heartburn, Denies diarrhea and Denies nausea Denies urinary frequency, Denies urinary incontinence and Denies urinary urgency Musc Denies abnormal gait, Denies back pain, Denies myalgias, Denies arthralgias, Denies neck pain, Denies numbness and Denies tingling Neuro Denies abnormal gait, Denies vertigo, Denies dizziness, Denies syncope, Denies frequent falls, Denies headache(s), Denies lack of coordination, Denies loss of vision, Denies memory loss, Denies numbness, Denies Other visual disturbances, Denies restless legs, Denies seizure-like activity, Denies tingling, Denies paresthesias, Reports tremor(s) and Denies weakness Psych Denies anxiety, Denies depression, Denies auditory hallucinations, Denies memory loss and Denies visual hallucinations Endo Denies fatigue and Denies palpitations Physical Exam Const Other: General Appearance:? normal, in no acute distress. Heart:? S1, S2 normal, no murmurs. Lungs:? clear anteriorly and posteriorly. Musculoskeletal:? normal. Extremities:? no edema. Psych:? alert, oriented, cognitive function intact, cooperative with exam. Neuro Other: Abnormal Neurological Findings:?Mild bilateral hand tremor on sustained posture and slight jaw tremor. ? Mental Status: alert and oriented X 3. Normal attention, orientation, memory, and affect. Cranial Nerves: Pupils are equal, round, and reactive to light. External ocular muscles are intact. Visual diana are full, no ptosis. Face is symmetrical, no facial weakness or droop. Facial sensations are normal. Tongue protrudes in midline. Palate elevates symmetrically. Shoulder shrugging is normal Motor Examination: Normal muscle tone, bulk and strength. No atrophy or fasciculations. No drift of the extended upper extremities. DTR 2+. Plantars are flexor. Sensory Exam: Normal light touch, temperature, pinprick, vibration, and joint- position sensations. Rhomberg sign is absent. Coordination: No ataxia. No titubation. Gait Exam: Within normal limits. Cerebellar Signs: Lefzif-sb-xqht is okay. Extrapyramidal System: Tremor as above. No rigidity with normal facial expressions. No bradykinesia. No bradyphrenia. Normal arm swing and posture. No propulsion or retropulsion. Speech: Normal. Results Reviewed Results Reviewed: 01/03/24 MRI : subacute left frontal infarct 01/03/24 CTA normal carotids in the neck. Occluded M3 branch of left MCA , all othervessels normal. Echocardiogram, transthoracic normal. Assessment & Plan Assessment & Plan (1) History of stroke: Code(s): Z86.73 - Personal history of transient ischemic attack (TIA), and cerebral infarction without residual deficits Category: Medical Plan: Continue current treatment. (2) Benign essential tremor: Code(s): G25.0 - Essential tremor Category: Medical Plan: Tremor was not significantly bothersome and he was not interested in medication at this time. Coding Level of Care Code Est Pt Level 4 (76402) Diagnoses History of stroke Z86.73 Benign essential tremor G25.0
--- OUTSIDE RECORDS SUMMARY | 2025-03-13 09:24 | XMS_ITS | Clinical Summary ---
Author Organization [facility] Address [address] [place] [address] Care Team Providers Care Cotton Weigher Operator Name Role Phone Lambert Turner MD Primary Care Provider [phone] Allergies Active Allergy Reactions Criticality Noted Date [...] 68 02/23/2024 3:21 PM EDT Temperature 36.8 C (98.2 F) 02/23/2024 3:21 PM EDT Respiratory Rate - - Oxygen Saturation 99% [...] f 2) 2012 COVID-19 Vaccine (3 - 2024-2 6 season) 2025 10/09/2020, 09/10/2020 Influenza Vaccine (#1) 2025 DTap / Tdap / Td (2 - [...] age to complete this topic Care Teams Cotton Weigher Operator Relationship Specialty Start Date End Date Lambert Turner MD [address] [place] [id number] PCP - General Internal Medicine 01/14/24
--- OUTSIDE RECORDS SUMMARY | 2025-03-13 09:24 | XMS_ITS | Clinical Summary ---
Author Organization [facility] Address [address] [place] [address] Care Team Providers Care Medical Records Analyst Name Role Phone Unavailable Primary Care Provider Unavailabl e Source Comments PLEASE NOTE, if this patient is a minor, it may be UNLAWFUL to discuss sensitive information that is contained in these records (such as FAMILY PLANNING, MENTAL HEALTH or SUBSTANCE ABUSE) with the minor patient's parent or other person without the patient's specific authorization.[facility] Immunizations Immunization Administration Dates Next Due Moderna COVID-19 Vaccine, [...] Health Maintenance Due Date Last Done Comments Anxiety Screening 1962 Diabetes Screening 1962 Hepatitis C Screening 1962 Tobacco Screening 1962 HIV Screening 1977 Hypertension Screening (#1) 1980 CT Colonography 2007 Colonoscopy 2007 Colorectal Cancer Screening 2007 FIT/gFOBT 2007 Fecal DNA 2007 Flexible Sigmoidoscopy 2007 Imm-Pneumococcal 50+ (1 of 1 - PCV) 2012 Imm-Zoster, Recombinant (1 of 2) 2012 Lipid Screening 08/23/2022 08/23/2017 Alcohol and Drug Screen 06/07/2024 Depression Annual Screen 06/07/2024 [id number] ( season) 2025 021, 09/10/2020 Imm-Influenza (#1) 2025 02/08/2020 Imm-DTaP/Tdap/Td (2 - Td or Tdap) 11/10/2027 018 Insurance AETNA [facility]
--- OUTSIDE RECORDS SUMMARY | 2025-03-13 09:24 | XMS_ITS | Clinical Summary ---
Author Organization [facility] [address] [facility] Address [address] [place], [place] Phone Care Team Providers Care Salesperson [employer] Name Role Phone Lambert Turner MD Primary Care Provider Un available Allergies Active Allergy Reactions Criticality Noted Date Comments Doxycycline 11/09/2017 Other Reaction(s): Rash/Dermatitis, unknown Medications aspirin 81 mg EC tablet Take 1 tablet (81 mg total) by mouth 1 (one) time each day. Active atorvastatin (LIPITOR) 20 mg tablet Take 1 tablet (20 mg total) by mouth 1 (one) time each day. 10/21/2023 Active lisinopriL (PRINIVIL,ZESTR IL) 2.5 mg tablet Take 1 tablet (2.5 mg total) by mouth 1 (one) time each day. Active clopidogreL (PLAVIX) 75 mg tablet Take 1 tablet (75 mg total) by mouth 1 (one) time each day. 90 tablet 1 04/24/2024 Active apixaban (ELIQUIS) starter pack Take 2 tablets (10 mg total) by mouth 2 (two) times a day for 7 days. Then take 1 tablet (5 mg total) by mouth 2 (two) times a day. 74 tablet 12/08/2024 Active Active Problems Problem Noted Date Diagnosed Date Elevated PSA 03/09/2024 Expressive aphasia 03/09/2024 History of CVA with residual deficit 03/09/2024 Hypertension 03/09/2024 Bilateral tinnitus 10/21/2023 Hyperlipidemia 07/24/2021 Adenomatous polyp of sigmoid colon 08/25/2018 Obesity (BMI 30.0-34.9) 05/04/2018 Immunizations Immunization Administration Dates Next Due Influenza, Unspecified 01/29/2024,03/02/2022 [...] Medical History Medical History Date Comments [place] [place] [facility] V28) DX:Stroke (HCC) DVT (deep venous [place]) [place] [place] [facility] V28) DX:DVT (deep venous thrombos is) (HCC) D[place] (deep venous [place]) [place] [place] [facility] V28) 11/09/2017 DX:DVT (deep venous thrombos is) ([facility]) Pulmonary embolism [place] [place] [facility] V28) 11/09/2017 DX:Pulmonary embolism (HCC) Obesity (BMI 30.0-34.9) 05/04/2018 DX:Obesi ty (BMI 30.0-34.9) Ischemic stroke of frontal l obe [place] [place] [facility] [place] [place] 01/14/2024 DX:Ischemic stroke of front al lobe ([facility]) Expressive aphasia 01/14/2024 DX:Expressive aphasia Elevated [...] your loved ones. For example, child care coordinator or elderly care for an older adult? [...] Date Recorded What is your living situation? Unrecognized valu e 04/18/2024 Sex and Gender Information Value Date Recorded Sex Assigned at Not on file Legal Sex Male 11:51 AM EST Gender Identity Not on file Sexual Orientation Not on file Obstetrics History Last Filed Vital Signs Vital Sign Reading Time Taken Comments Blood Pressure 128/80 12/08/2024 9:42 PM EDT Pulse 77 12/08/2024 9:42 PM EDT Temperature 36.6 C (97.9 F) 12/08/2024 9:42 PM EDT Respiratory Rate 18 12/08/2024 9:42 PM EDT Oxygen Saturation 95% 12/08/2024 9:42 PM EDT Inhaled Oxygen Concentration - - Weight 86.2 kg (190 lb) 12/08/2024 7:10 PM EDT Height 170.2 cm (5' 7 ) 12/08/2024 7:10 PM EDT Body Mass Index 29.76 12/08/2024 7:10 PM EDT Plan of Treatment Health Maintenance Due Date Last Done Comments RSV Immunization Adult Patients (1 - Risk 60-74 years 1-dose series) 2022 HIV Screening 05/17/2022 Depression Screening 06/07/2024 04/18/2024 COVID-19 Vaccine ( season) 2025 05/06/2022, 04/07/2022, 06/14/2021, Additional history exists Influenza Vaccine (#1) 2025 , 03/07/2023, 03/02/2022, Additional history exists Hypertension/CHF/CAD Annual BMP Blood Test 03/06/2025 03/06/2024, 12/20/2023, 12/20/2023 Social Influencers of Health Screening 04/18/2025 04/18/2024 DTaP,Tdap,and Td Vaccines (2 - Td or Tdap) 11/10/2027 11/09/2017 Cholesterol Screening (Lipid Panel) 12/19/2028 12/20/2023, 12/20/2023, 08/23/2017 Colorectal Cancer Screening: Colonoscopy 08/16/2033 08/17/2023 Hepatitis C Screening Completed 11/09/2017 Zoster Vaccines Completed 03/03/2022, 11/30/2021 Pneumococcal Vaccine: 50+ Years Completed 07/10/2024 HIB Vaccines Aged Out No longer eligi [...] age to complete this topic Meningococcal B Vaccine Aged Out No l onger eligible based on patient's age to complete [...] * Annual BMP Blood Test (12/20/2023) [facility]ologist [facility] Annual BMP Blood Test Abstracted [facility] Provider HEALTH MAINTENANCE Final Result * Lipid panel (12/20/2023) [facility] LDL/HDL Ratio 3 0 - 4 Triglycerides 127 0 - 150 mg/dL Cholesterol 158 0 - 200 mg/dL HDL 56 >=40 mg/dL LDL Cholesterol 77 0 - 100 mg/dL Blood Venous blood specimen / Unknown Result [facility] Provider LAB BLOOD ORDERABLES Destiny l Result * Colonoscopy (08/17/2023) Pathologist [facility] Colonoscopy No Interpretation , Abstracted Anatomical Region Laterality Modality Other [facility] Provider HEALTH MAINTENANCE Final Result * Hepatitis C Screening (11/09/2017) Hepatitis C Screening Abstracted Historical Provider HEALTH MAINTENANCE Final Result from Last 3 Months or Most Recently Relevant to Health Maintenance Insurance [employer] Care Teams Salesperson [employer] Relationship Specialty Start Date End Date Lambert Turner MD PCP - General Internal Medicine 10/25/17
== END 2025-03-13 09:21 | disposition home or self-care (01) ==
LOC: HO.HSM 08:43
PROVIDERS: PCP Internal Medicine; Referring Provider Internal Medicine; Visit Provider Registered Nurse
DX: Z86.73 Personal history of transient ischemic attack (TIA), and cerebral infarction without residual deficits (principal); G25.0 Essential tremor
CPT/HCPCS: 99214

== ENCOUNTER → 2025-03-20 23:59 | Outpatient (BNV) | payer OTHER, SELFPAY ==
--- NOTE | 2025-03-26 15:18 | MHC.OFFVIS ---
Intake Visit Reasons: Remove ILR Check ([employer]) Allergies doxycycline Allergy (Mild, Verified 03/13/25 09:08) Rash [facility] Medical History History of cardiac monitoring DVT (deep venous thrombosis) Pulmonary embolism CVA (cerebral vascular accident) Family History Father Alzheimer dementia Cancer Prostate CA Mother Rheumatic heart disease Paternal Grandfather Prostate CA Social History Household Members: Spouse Patient Tobacco Use Status: Never used Tobacco service: No Current occupational status: employed Gender identity: Male Office Procedures Cardiac Device Check Cardiac Device Check Details: Remote implantable loop recorder report generated 03/20/2025. No arrhythmias or pauses noted [id number] Cardiac Interrogation, subcut cardiac rhythm monitor Procedure code (CPT) selection complete Assessment & Plan Assessment & Plan (1) Implantable loop recorder present: Code(s): Z95.818 - Presence of other cardiac implants and grafts Category: Medical Plan: See above Coding Level of Care Code Procedure Only Diagnoses Implantable loop recorder present Z95.818 CPT Codes Cardiac Device Check - Cardiac Device 16: [id number] Cardiac Interrogation, subcut cardiac rhythm monitor ([id number])
== END ==
PROVIDERS: PCP Internal Medicine; Visit Provider Internal Medicine Cardiovascular Disease
DX: Z45.09 Encounter for adjustment and management of other cardiac device (principal)
CPT/HCPCS: 93298

== ENCOUNTER → 2025-05-23 14:12 | Outpatient (BNV) | payer OTHER, SELFPAY | PROVIDERS: PCP Internal Medicine; Visit Provider Internal Medicine Cardiovascular Disease | DX: Z45.09 Encounter for adjustment and management of other cardiac device (principal) | CPT/HCPCS: 93298 ==

== ENCOUNTER → 2025-06-01 16:11 | Outpatient (BNV) | payer OTHER, SELFPAY | PROVIDERS: PCP Internal Medicine; Visit Provider Internal Medicine Cardiovascular Disease | DX: Z95.818 Presence of other cardiac implants and grafts (principal) | CPT/HCPCS: 93298 ==